=== PATIENT | female | born 2000 | race Hispanic/Latino ===

== ENCOUNTER 2021-07-01 05:58 | Inpatient (IN) | payer OTHER, SELFPAY ==
[2021-07-01] VITALS (88 sets, daily range): BP systolic 90–213; BP diastolic 29–155; PULSE 82–186; RESP 16–20; TEMP 36.6–37.4; O2SAT 100; BMI 28.1
--- NOTE | 2021-07-01 06:10 | LDADM ---
This patient, Destiny Chaparro, was admitted to Labor/Delivery/Recovery 103 on 07/01/21 at 05:58. Plans for labor, pain management and were discussed with patient. Patient/family oriented to hospital policies and general routines including ID bracelet, bed and alarms, visiting hours, pain management, procedures, bathroom and other care routines, personal items, smoking policy, room service/diet and guest tray routines, security routines, and visiting hours. Patient/Family are encouraged to report perceived risks to care and to ask questions if they do not understand what they are told or what they should do. See OBIX for further documentation.
[2021-07-01 06:37] LABS: Basophils Percent Auto 0.4 % (0.2-1.2); Eosinophils Absolute Auto 0.1 K/mm3 (0-0.3); Hematocrit 39.7 % (37.0-47.0); Hemoglobin 13.9 g/dL (12.0-15.0); Immature Granulocyte Absolute 0.06 K/mm3 (0.00-0.031); Immature Granulocyte Percent A 0.8 % (0-0.5); Lymphocytes Absolute Auto 1.91 K/mm3 (0.9-3.2); Lymphocytes Percent Auto 24.5 % (18.3-44.2); Mean Corpuscular Volume 88.4 fl (80-100); Mean Platelet Volume 10.5 fl (7.4-10.4); Monocytes Absolute Auto 0.5 K/mm3 (0.1-0.6); Monocytes Percent Auto 6.5 % (2.6-8.5); Neutrophils Absolute Auto 5.2 K/mm3 (1.3-6.7); Neutrophils Percent Auto 66.8 % (45.5-73.1); Platelet Count Result 260 k/mm3 (150-375); Red Blood Count 4.49 M/mm3 (4.2-5.4); White Blood Count 7.8 K/mm3 (4.5-10.0)
[2021-07-01] MEDS: OXYTOCIN 30 UNITS/NS 500 ML 30 UNITS/500 ML BAG IV CONT (06:58)
[2021-07-01] MEDS: LACTATED RINGERS 1,000 ML 125 ML IV CONT ×2 (06:58→11:57)
--- NOTE | 2021-07-01 08:22 | P.HP_ITS ---
H&P: HPI History of Present Illness Date/Time: 07/01/21 08:22 Chief Complaint: induction of labor Narrative: Destiny is a 21yo G1 at 39+ weeks for elective IOL due to her 's work schedule. uncomplicated, care started in [place]. Review of Systems Review of Systems: All systems reviewed & are unremarkable except as noted in HPI and below PMFSH Family History Family History Other No pertinent family history Social History Social History Smoking status: Never smoker Substance use: never Spiritual care concerns: No Meds Vital Signs Vital Signs - 24 hr 07/01/21 06:33 07/01/21 07:02 07/01/21 07:15 Temperature 98.2 F Pulse Rate 121 H 115 H 110 H Respiratory Rate 18 Blood Pressure 119/83 103/76 116/96 H 07/01/21 07:30 07/01/21 07:45 07/01/21 08:00 Temperature Pulse Rate 100 91 105 H Respiratory Rate Blood Pressure 120/81 115/73 124/83 07/01/21 08:15 Temperature Pulse Rate 104 H Respiratory Rate Blood Pressure 120/88 Exam Const: General: no acute distress Resp: Effort & Inspection: normal respiratory effort Auscultation: clear to auscultation bilaterally Cardio: Rate: regular rate Rhythm: regular rhythm GI: GI Palp: Yes Soft to palpation Extrem: General: normal to inspection H&P: Results Labs Labs: Short CBC 07/01/21 Range/Units 06:28 WBC 7.8 (4.5-10.0) K/mm3 Hgb 13.9 (12.0-15.0) g/dL Hct 39.7 (37.0-47.0) % Plt Count 260 (150-375) k/mm3 Assessment and Plan Assessment and plan (1) Term : Code(s): Z34.90 - Encounter for supervision of normal , unspecified, unspecified trimester Status: Acute Additional Plan Here for induction of labor-pitocin GBS neg FHT category 1 AROM clear SVE 1.5/50/-2
--- NOTE | 2021-07-01 12:01 | WPDANESEPPF ---
Anes - Initial Pre Proc Eval Date/Time: 07/01/21 12:01 Surgeon: rAianne Benitez MD Pre Op Diagnosis: Induction of Labor Patient Data Age: 21 Gender: F Height: 1.73 m Weight: 84 kg Last Vital Signs Temp 36.8 C 07/01/21 11:25 Pulse 105 H 07/01/21 11:59 Resp 18 07/01/21 11:25 BP 114/58 L 07/01/21 11:59 Pulse Ox 100 07/01/21 12:00 Allergies Allergy/AdvReac Type Severity Reaction Status Date / Time No Known Allergies Allergy Verified 07/01/21 09:05 Home Medications Medication Instructions Recorded Confirmed Type no.[id number] 1 cap PO DAILY 07/01/21 07/01/21 History [PRODUCTION LABORER-PNV-DHA] Laboratory Tests 07/01/21 07/01/21 07/01/21 06:28 06:28 06:28 WBC 7.8 K/mm3 K/mm3 (4.5-10.0) RBC 4.49 M/mm3 M/mm3 (4.2-5.4) Hgb 13.9 g/dL g/dL (12.0-15.0) Hct 39.7 % % (37.0-47.0) MCV 88.4 fl fl (80-100) MCH 31.0 pg pg (26-34) MCHC 35.0 g/dl g/dl (32-36) RDW 13.0 % % (11.5-14.5) Plt Count 260 k/mm3 k/mm3 (150-375) MPV 10.5 fl H fl (7.4-10.4) Immature Gran % (Auto) 0.8 % H % (0-0.5) Neut % (Auto) 66.8 % % (45.5-73.1) Lymph % (Auto) 24.5 % % (18.3-44.2) [place] % (Auto) 6.5 % % (2.6-8.5) Eos % (Auto) 1.0 % % (0-4.4) Baso % (Auto) 0.4 % % (0.2-1.2) Lymph # (Auto) 1.91 K/mm3 K/mm3 (0.9-3.2) [place] # (Auto) 0.5 K/mm3 K/mm3 (0.1-0.6) Eos # (Auto) 0.1 K/mm3 K/mm3 (0-0.3) Baso # (Auto) 0.0 K/mm3 K/mm3 (0.0-0.1) Abs Immat Gran (auto) 0.06 K/mm3 H K/mm3 (0.00-0.031) Absolute Neuts (auto) 5.2 K/mm3 K/mm3 (1.3-6.7) Absolute Nucleated RBC 0.0 K/mm3 K/mm3 (0.0-0.012) Nucleated RBC % 0.0 % % (0.0-0.2) RPR Pending Blood Type O Positive Antibody Screen Negative Patient hx anesthesia problems: none Family hx anesthesia problems: none Results Review: All pre-operative results and documents have been reviewed as part of the pre-operative evaluation. [facility] Family History Family History Other No pertinent family history Social History Social History Smoking status: Never smoker Substance use: never Spiritual care concerns: No Anes - Eval Final PreProcedure Day of Procedure 07/01/21 12:01 Patient weight: overweight Heart: regular rate and rhythm Lungs: clear to auscultation Neurological: other (alert) ASA classification: II Emergent: no Anesthetic plan: proceed Anesthesia type and monitoring: regional epidural and standard monitoring Results Review: All pre-operative results and documents have been reviewed as part of the pre-operative evaluation. Informed Consent: The patient's anesthetic plan and its attendant risks and benefits were discussed with the patient/family/POA. Questions were solicited and answers provided to the satisfaction of the patient/family/POA.
--- NOTE | 2021-07-01 16:27 | PM.OBPRVD ---
OB - Delivery Note Procedure Delivery date: 07/01/21 Intrapartal events: None Induction method: AROM and per pitocin protocol Delivery monitor: external FHT and external uterine Laceration Description: Perineal - 1st Degree and Labial (right) Delivery repair: vicryl Specimen: No Quantitative Blood Loss (ml): 92 Anesthesia type: Epidural Narrative: With adequate expulsive efforts by the mother, the baby's head was delivered OA. The baby's anterior shoulder was delivered under the pubic symphysis without difficulty. The posterior shoulder and the rest of the baby delivered without difficulty. The infant was placed on the mothers chest and suctioned and stimulated. The cord was clamped and cut after 60 seconds. Mother and baby both stable. Baby Date of : 07/01/21 Time of : 16:04 Weeks of gestation at delivery: 39 Infant gender: Male Weight (pounds): 8 Weight (ounces): 2 presentation: vertex Placenta delivery description: Spontaneous cord vessel description: 3 Vessels and Delayed Cord Clamping score one minute: 9 score five minutes: 9
[2021-07-01] MEDS: OXYTOCIN 30 UNITS/NS 500 ML 30 UNITS/500 ML BAG 125 UNITS IV CONT (16:43)
[2021-07-01 16:49] LABS: Rapid Plasma Reagin Non-Reactive (NonReactive)
[2021-07-01] MEDS: METHYLERGONOVINE MALEATE 0.2 MG/ML VIAL IM (17:53)
[2021-07-01] MEDS: MORPHINE SULFATE (*CRX) 2 MG/ML INJ (18:06)
[2021-07-01] MEDS: miSOPROStol 200 MCG TABLET 800 MCG RECTAL (18:18)
--- NOTE | 2021-07-01 18:26 | P.PNOB_ITS ---
OB - PN: Subj Subjective Date/time seen: 07/01/21 18:26 Narrative: Called to see pt re hemorrhage and concern for retained placenta. Pt had lost about 700 prior to my arrival with numerous clots. With exploration of uterus, i removed several pieces of placenta and membranes, and lost approximately another 400 of blood. When it became clear that I would be unable to remove all of the retained products at bedside, we decided to proceed with a D and C in OR at 1815. Currently assembling staff and setting up room. T and C, ancef 2gm, H/H now. Discussed with RN, assisted living housekeeper, Dr. Welch. Consented pt, questions answered. OB - PN: Obj Data Labs CBC & Chem 7: 07/01/21 06:28 Labs: Laboratory Results - last 24 hr 07/01/21 07/01/21 07/01/21 06:28 06:28 06:28 WBC 7.8 RBC 4.49 Hgb 13.9 Hct 39.7 MCV 88.4 MCH 31.0 MCHC 35.0 RDW 13.0 Plt Count 260 MPV 10.5 H Immature Gran % (Auto) 0.8 H Neut % (Auto) 66.8 Lymph % (Auto) 24.5 [place] % (Auto) 6.5 Eos % (Auto) 1.0 Baso % (Auto) 0.4 Lymph # (Auto) 1.91 [place] # (Auto) 0.5 Eos # (Auto) 0.1 Baso # (Auto) 0.0 Abs Immat Gran (auto) 0.06 H Absolute Neuts (auto) 5.2 Absolute Nucleated RBC 0.0 Nucleated RBC % 0.0 RPR Non-reactive Blood Type O Positive Antibody Screen Negative Crossmatch See Detail OB - PN A/P Time Spent With Patient Time: Total time spent is greater than 50% in coordination of care (as documented) at patient's floor/unit and/or counseling patient:
[2021-07-01 18:43] LABS: Hematocrit 39.5 % (37.0-47.0); Hemoglobin 13.9 g/dL (12.0-15.0)
[2021-07-01] MEDS: LACTATED RINGERS 1,000 ML 30 ML IV CONT (19:08)
--- NOTE | 2021-07-01 19:08 | W.PM.PROC2 ---
Procedure Note - Detailed Date of Procedure 07/01/21 Pre-op Diagnosis retained placenta Post-op Diagnosis same Procedure Performed suction D and C Surgeon Arianne Benitez MD Anesthesia MAC Description of Procedure The patient was taken to the OR and placed in supine position in dorsal lithotomy. She received MAC anesthesia along with her epidural and ancef. She was prepped and draped in normal fashion. Due to the cervix being dilated, the suction catheter was manually guided into the uterus. Moderate amounts of placenta and membranes were obtained. Several passes were made until no further products of conception were obtained x3 passes. Her bleeding was monitored for another 2-3 minutes. Tranexamic acid was also given. The patient tolerated the procedure well and was taken to the recovery room in stable condition. Drains No Packing No Pathology yes Complications No immediate complications Condition stable Disposition same day
[2021-07-01] MEDS: ceFAZolin 2 GM/D5W 50 ML 2 GM/50 ML BAG IVPB (19:09)
[2021-07-01 20:39] LABS: Hematocrit 37.4 % (37.0-47.0); Hemoglobin 12.8 g/dL (12.0-15.0)
--- NOTE | 2021-07-01 21:25 | OBPPTRN ---
Patient transferred to post room #279 via W/C. Support person present. Oriented to unit, room, information board, rooming in, admission packet and security measures. Patient verbalizes understanding.
[2021-07-01] MEDS: IBUPROFEN 600 MG TABLET PO (21:44)
[2021-07-02] VITALS: BP 131/79; PULSE 112; RESP 18; TEMP 36.9
[2021-07-02] MEDS: IBUPROFEN 600 MG TABLET PO ×3 (04:49→17:37)
[2021-07-02 04:52] VITALS: BP 100/62; PULSE 92; RESP 18; TEMP 36.8
[2021-07-02 05:40] LABS: Hematocrit 33.2 % (37.0-47.0)
--- NOTE | 2021-07-02 07:20 | PC.NURSE ---
Pt introductions made and plan of care discussed per post , pain management, breast feeding, daily care activities. PT and fob unable to speak Palauan. Difficult language barriers to learning. PT's sister present in room and staying for post and recovery period. PT and pt's sister received such instruction through mom baby care guide, discussion and demonstrations per shift this shift. PT through her sister verbalized understanding.
--- NOTE | 2021-07-02 07:34 | WPDANLDPN2 ---
Anes-Prog Note L&D Date/Time: 07/02/21 07:34 Comfortable throughout: labor and delivery Neuraxial method: epidural Epidural/Spinal procedure site: clean & non-tender Neuro status: Neuro function grossly intact. Cardiovascular status: normal Respiratory status: normal Airway patency: baseline Mental status: baseline Post-Op hydration status: normal Vital Signs: Last Vital Signs Temp 98.2 F 07/02/21 04:52 Pulse 92 07/02/21 04:52 Resp 18 07/02/21 04:52 BP 100/62 07/02/21 04:52 Pulse Ox 100 07/01/21 19:50 Pain score (VAS): 0 I/O: Intake & Output 07/01/21 07/01/21 07/02/21 15:59 23:59 07:59 Intake Total 1000 1200 Output Total 1436 Balance 1000 -236 Post-procedural complaints: none Patient feedback: Patient satisfied with anesthetic care.[place] Island[place] speaking family member at bedside interpreting.
--- NOTE | 2021-07-02 07:53 | P.PNOB_ITS ---
OB - PN: Subj Subjective Date/time seen: 07/02/21 07:53 Interval history: s/p and pp D and C for retained placenta Patient comments: no complaints and pain well controlled Carefree baby status: doing well Narrative: Bleeding reasonable. NO dizziness or nausea currently but had N/V overnight so didn't breastfeed. Plans to breastfeed today. OB - PN: Obj Data Labs CBC & Chem 7: 07/02/21 04:49 Labs: Laboratory Results - last 24 hr 07/01/21 07/01/21 07/01/21 06:28 06:28 18:33 Hgb 13.9 Hct 39.5 RPR Non-reactive Blood Type O Positive Antibody Screen Negative Crossmatch See Detail 07/01/21 07/02/21 20:34 04:49 Hgb 12.8 11.0 L Hct 37.4 33.2 L RPR Blood Type Antibody Screen Crossmatch OB - PN A/P Assessment and Plan (1) , delivered: Code(s): O80 - Encounter for full-term uncomplicated delivery Status: Acute (2) Retained placenta and uterine membrane: Code(s): O72.2 - Delayed and secondary hemorrhage Status: Acute Plan day: 1 Plan: routine care Comments: stable after pp hemorrhage of 1400+ from retained placenta requiring D and C. Starting Hgb was 14, currently 11. asymptomatic. encouraged circumcision done DC home tomorrow. Time Spent With Patient Time: Total time spent is greater than 50% in coordination of care (as docu mented) at patient's floor/unit and/or counseling patient: Time with patient: less than 15 minutes Exam Narrative: NAD abdomen soft, nontender, fundus firm below the umbilicus Extremities nontender, 1+ edema
[2021-07-02 08:50] VITALS: BP 109/66; PULSE 95; RESP 18; TEMP 36.3; O2SAT 100
[2021-07-02 09:00] VITALS: PULSE 110; RESP 16; O2SAT 100
[2021-07-02] MEDS: ACETAMINOPHEN 325 MG TABLET 650 MG PO ×2 (12:07→17:38)
[2021-07-02] MEDS: MULTIVIT/MIN/PREN/FOL AC/IRON TABLET 1 TAB PO (12:08)
[2021-07-02] MEDS: DOCUSATE SODIUM 100 MG CAPSULE PO ×2 (12:08→17:37)
[2021-07-02] MEDS: POLYSACCHARIDE IRON COMPLEX 150 MG CAPSULE PO ×2 (12:09→17:37)
[2021-07-02 12:10] VITALS: BP 110/75; PULSE 110; RESP 16; TEMP 36.2; O2SAT 100
--- NOTE | 2021-07-02 14:08 | PC.NURSE ---
0812 - Infant was circumcised and given medication with bottle nipple in the nursery. 0824 - Introductions were made and mother led the discussion with the assistance of her sister translating Slovenian to Iranian of her desires and plans to feed her baby. RN visualizes half empty bottles in the room from supplementing through the night. Reviewed handwashing to prevent infection before and after taking care of her baby. Mother verbalizes she is unable to independently latch infant. Mother desires to pump and feed . Bilateral breast assessed. Nipples are flat and clovis with stimulation. Iranian handouts and visuals used with discussion with regards to milk production, skin to skin and feeding cues. Catherine (mothers sister) communicates very well with patient. Mother wants to attempt to breastfeed with assistance. RN encourages skin to skin with infant, reviewed feeding cues and voiced understanding of calling for assistance with the communication through her sister. 0925 - Mother is eating breakfast and will call later. Offered to place skin to skin. She will place skin to skin after she is finished eating. Encouraged watching for early feeding cues, skin to skin, then feeding baby when is ready or every 2-3 hours. 1005 - Reviewed positioning/alignment with the use of the Iranian visual handouts/mom and baby guide visual pictures. Encouraged mother with infant skin to skin. RN assisted mother with to the right breast in football position using nipple to nose with [place] open asymmetrical 140-degree latch. effectively latched after multiple learning attempts. Mother denies any nipple discomfort. Reviewed there is to be no pain with , how to detach infant from the breast, visuals to watch for to confirm effective . Reviewed effective latching with resources tool/handout. Nipple tenderness is relieved with improving positioning and effective latching. Use of warm, wet compress to nipples and air dry for improved comfort. was able to maintain effective latch on the right breast with football positioning and mother denies pain with no (dolor). Mother has verbalized understanding through her sister as merchandise presentation manager on how to watch for feeding cues for responsive feeding or how to stimulate to initiate from the start of the last feeding. Reviewed education on white board, with sister translating to stimulate with without discomfort, 8-12 times in 24 hours approximately every 2-3 hours from the start of the last feeding. If there is no latching or there is discomfort to call for assistance. There are bottles of formula in the drawer placed by primary RN. Reported to primary RN.
[2021-07-02 20:35] VITALS: BP 106/66; PULSE 97; RESP 18; TEMP 36.2; O2SAT 100
[2021-07-03 07:50] VITALS: BP 113/80; PULSE 94; RESP 16; TEMP 36.6; O2SAT 100
--- NOTE | 2021-07-03 08:00 | PC.NURSE ---
ntroductions made and plan of care discussed per post , pain management, breast feeding, daily care activities pending discharge to home. PT oriented to room and surrounding area. PT and significant other and sister both recipients of instructions and language barriers to learning identified at this time. PT received instructions this shift via one to one discussion, mom baby care guide and demonstrations. Oriented to unit, room, information board, rooming in, admission packet and security measures. Patient verbalizes understanding.
[2021-07-03 08:30] VITALS: PULSE 94; RESP 16; O2SAT 100
--- NOTE | 2021-07-03 08:53 | PM.OBPNVD ---
OB - PN: Subj Subjective Date/time seen: 07/03/21 08:53 Interval history: s/p and pp D and C for retained placenta Patient comments: no complaints [place] baby status: doing well OB - PN: Obj Data Labs CBC & Chem 7: 07/02/21 04:49 OB - PN A/P Plan day: 2 Plan: routine care and discharge home (F/U in 4 weeks) Time Spent With Patient Time: Total time spent is greater than 50% in coordination of care (as documented) at patient's floor/unit and/or counseling patient: Time with patient: less than 15 minutes Review of Systems Review of Systems: All systems reviewed & are unremarkable except as noted in HPI and below Exam Narrative: Fundus firm and vaginal flow controlled. No lower ext redness, warmth, or edema. Negative homans. Const: General: comfortable Chest: Breast/axilla inspection: normal inspection of the breasts Resp: Effort & Inspection: normal respiratory effort Cardio: Rate: regular rate GI: GI Palp: Yes Soft to palpation Psych: Appearance: grossly normal Affect: normal affect Attitude: cooperative Thought content: Yes Normal thought content present Judgement: Good judgement present (Psych)
[2021-07-03] MEDS: MULTIVIT/MIN/PREN/FOL AC/IRON TABLET 1 TAB PO (09:04)
[2021-07-03] MEDS: ACETAMINOPHEN 325 MG TABLET 650 MG PO (09:04)
[2021-07-03] MEDS: DOCUSATE SODIUM 100 MG CAPSULE PO (09:04)
[2021-07-03] MEDS: POLYSACCHARIDE IRON COMPLEX 150 MG CAPSULE PO (09:04)
[2021-07-03] MEDS: IBUPROFEN 600 MG TABLET PO (09:05)
--- NOTE | 2021-07-03 11:23 | PC.NURSE ---
0998 - Pt's sister translated mother's conversation with regards to her experience feeding her baby so far. Pt states things are going well, they do not have any questions that need clarified. Resources have been reviewed in Lao or translated with sister. Reminded parents to use good handwashing to prevent infection. Infant has had appropriate feedings in the past 24 hours and meets the outcomes for weight, output and jaundice. Mother states through her sister that she feels confident to continue /supplementing her at home and has no complaints of discomfort with nursing baby. Reviewed production of human milk, transition of milk, signs of adequate intake and engorgement prevention/relief and when to call the care provider using Lao resources and translation with her sister. Reviewed community resources and outpatient services as listed in the mom and baby guide/[facility] website. Reinforced watching for feeding cues with responsive feeding and how to stimulate to initiate feeding three hours from the start of the last feeding. Mother voiced understanding translated through her sister of information shared. Reported to primary RN.
--- NOTE | 2021-07-03 13:00 | PC.NURSE ---
PT received discharge instructions as interpreted by her sister. Both verbalized understanding of such instructions
--- NOTE | 2021-07-03 13:40 | PC.NURSE ---
PT discharged to home ambulatory accompanied by spouse and sister and and taken to waiting car. Follow up appts confirmed
[2021-07-04 14:00] VITALS: BP 116/74; PULSE 109; RESP 20; TEMP 36.5; O2SAT 100
--- NOTE | 2021-07-14 07:42 | PM.OBDSVD ---
DS: Admitting Diagnosis Discharge Date 07/03/21 Admitting Diagnosis term IUP DS: Discharge Diagnosis Discharge Diagnosis (1) , delivered: Code(s): O80 - Encounter for full-term uncomplicated delivery Status: Acute (2) Retained placenta and uterine membrane: Code(s): O72.2 - Delayed and secondary hemorrhage Status: Acute OB - DS: Summary Hospital Course Hospital Course: Destiny had an uncomplicated except for retained placenta, discovered about an hour . She lost about 1400cc and an urgent D and C was done, along with giving medications for atony. Bleeding resolved with D and C. Hemoglobin dropped from 15 to 11, but she was asymptomatic and remainder of course was uncomplicated. OB Procedures : Ultrasound OB Procedures Intrapartum: Spontaneous Vag Delivery OB Procedures: : Curettage Peripartum Data Delivery Method: Natural Vaginal Procedures: Procedures Operation Date: 07/01/21 19:00 Actual Procedure Side Surgeon p D&C Suction and Sharp Not Applicable Arianne Benitez MD complications: retained placenta Status at Discharge Functional status at discharge: independent ambulation Time Spent with Patient Time attestation: Total time spent providing and/or coordinating discharge services: DS: Data Data Completed and Pending Completed studies during hospitalization: Pending at discharge 07/01/21 16:15 Surgical [PTH] Routine 07/01/21 18:55 Surgical [PTH] Routine Discharge Plan Discharge Attending physician on discharge: Arianne Benitez Consulting providers: Luana Light Discharging Clinician: Luana Light Patient Disposition: Home, Self-Care Activity: pelvic rest Diet: as tolerated Discharge Instructions: Education: Mom and Baby Guide Given to: Mother Follow-Up: Call your delivering provider's office for an appointment to be seen in: 4 Weeks Mom and baby should come to the [facility] for the follow-up appointment. Appointment Date/Time: July 04, 2021 at 1:30 pm What to expect at your follow-up visit: Blood Pressure Check Call [phone] if you are unable to keep your appointment time. BREAST CARE: * Wear a snug supportive bra. * For engorgement discomfort: Breast Feeding: * Apply warm moist washcloths * Express milk as needed to relieve engorgement * Wear loose clothing Bottle Feeding: * May apply ice packs * For sore nipples: * Identify correct latch-on * Apply warm moist washcloths before and after nursing * Air dry nipples after nursing * May apply Lansinoh cream to nipples PERINEAL CARE: * Until bleeding stops, use your hellen bottle after urinating * Change your pad frequently throughout the day * You may take sitz baths several times a day (fill your bathtub with warm water and soak for 20 minutes.) Do NOT bathe in the water * No tub baths until seen by your physician - You may shower ACTIVITY: * Rest as much as possible. * Do not exercise or lift anything heavier than your baby (such as laundry or other children.) * Avoid stairs or driving as much as possible. * Do not put anything into the vagina. No douching, tampons, or sexual activity until seen by physician. NOTIFY PHYSICIAN IF YOU HAVE ANY QUESTIONS OR IF ANY OF THE FOLLOWING SYMPTOMS OCCUR: * If your perineum becomes red, swollen, or more painful than what you have experienced in the hospital. * If your vaginal bleeding becomes foul smelling. * If your vaginal bleeding becomes more heavy than a period or if your bleeding changes from pink to bright red. However, you may pass an occasional walnut-sized clot once or twice for the first week . * If you experience a sharp, shooting pain in you calves. * If you discover a hard, reddened area on your breast or if you experience
== END 2021-07-03 13:40 | disposition home or self-care (01) | DRG 806 ==
LOC: ANHLDR 06:04 → ANHOB2 21:31
PROVIDERS: Admitting Provider Obstetrics & Gynecology; Visit Provider Obstetrics & Gynecology
PROC: 10E0XZZ Delivery of Products of Conception, External Approach (ICD-10-PCS; principal; 2021-07-01 19:00)
DX: O76 Abnormality in fetal heart rate and rhythm complicating labor and delivery (principal); O72.0 Third-stage hemorrhage; Z37.0 Single live birth; O70.0 First degree perineal laceration during delivery; Z3A.39 39 weeks gestation of pregnancy
CPT/HCPCS: 36415; 85014; 85018; 85025; 86592; 86850; 86900; 86901; 86920; 88305; 88307; A9270; J0690; J2210; J2270; J2590; J7120